=== PATIENT | male | born 1985 ===

== ENCOUNTER → 2023-06-28 | Emergency (ER) | payer OTHER ==
[~2023-06-28] VITALS: Ht 170.2 cm; Wt 83.9 kg
[~2023-06-28] MED LIST: AMLODIPINE-OLM1 EAC3; CLONAZEPAM0.25 MG PO; COZAAR25 MG PO; FLUOXETINE HCL60 MG; KETO10TA2 PO; ORPH100T PO; RESTORIL30 MG PO
== END | disposition home or self-care (01) ==
LOC: ER 08:20
DX: M54.50 Low back pain, unspecified (principal)